=== PATIENT | female | born 1995 | race Caucasian/White ===

== ENCOUNTER 2022-09-10 22:04 | Emergency (ER) | payer BC ==
[~2022-09-10] VITALS: Ht 170.2 cm; Wt 177.8 kg
[~2022-09-10 22:04] MED LIST: PREN-385 PO
[2022-09-10 22:05] VITALS: BP 135/99
--- NOTE | 2022-09-10 22:08 | NUR ---
TO LOBBY A/W BED AMBULATORY
--- NOTE | 2022-09-10 23:38 | NUR ---
PT CALLED FOR BY RN WITH NO ANSWER
== END 2022-09-10 23:38 | disposition left against medical advice (07) ==
LOC: MED 22:04
DX: M79.661 Pain in right lower leg (principal); Z53.21 Procedure and treatment not carried out due to patient leaving prior to being seen by health care provider

== ENCOUNTER 2022-09-16 06:13 | Emergency (ER) | payer BC ==
[~2022-09-16] VITALS: Ht 170.2 cm; Wt 176.9 kg
[2022-09-16 06:15] VITALS: BP 119/58
--- NOTE | 2022-09-16 06:18 | NUR ---
TO LOBBY A/W BED AMBULATORY
--- NOTE | 2022-09-16 07:35 | NUR ---
PT TAKEN TO XRAY VIA WC
--- NOTE | 2022-09-16 07:42 | NUR ---
DR CHINCHILLA EVALUATING PT
--- NOTE | 2022-09-16 07:54 | NUR ---
PT AMBULATED TO BED 3 WITH STEADY GAIT
[2022-09-16 08:11] LABS: BASOPHILS % (AUTO) 0.4 % (0.0-2.0); EOSINOPHILS # (AUTO) 0.1 K/uL (0-0.4); HEMATOCRIT 38.9 % (36-48); HEMOGLOBIN 12.3 g/dL (12.0-16.0); LYMPHOCYTES % (AUTO) 15.1 % (20.5-51.1); MEAN CORPUSCULAR HEMOGLOBIN 24 pg (27-31); MEAN CORPUSCULAR HGB CONC 32 g/dL (33-37); MEAN CORPUSCULAR VOLUME 75.8 fL (80-94); MONOCYTES # (AUTO) 0.5 K/uL (0.8-1.0); MONOCYTES % (AUTO) 7.2 % (1.7-9.3); NEUTROPHILS # (AUTO) 4.9 K/uL (1.8-7.7); NEUTROPHILS % (AUTO) 75.3 % (42.2-75.2); PLATELET COUNT (AUTO) 266 K/uL (140-450); RED BLOOD CELL COUNT(AUTO) 5.13 MIL/uL (4.20-5.40); RED CELL DISTRIBUTION WIDTH 15.3 % (11.6-13.7); WHITE BLOOD COUNT (AUTO) 6.5 K/uL (4.8-10.8)
--- NOTE | 2022-09-16 08:23 | NUR ---
pt encouraged to give urine "I went before coming". urine cup left at bedside
[2022-09-16 08:33] LABS: ALBUMIN 3.4 g/dL (3.4-5.0); ANION GAP 12.6 (8-16); CARBON DIOXIDE 24.3 mmol/L (21-32); CREATININE 0.6 mg/dL (0.6-1.3); POTASSIUM 3.9 mmol/L (3.5-5.1); TOTAL BILIRUBIN 0.5 mg/dL (0.0-1.0)
--- NOTE | 2022-09-16 08:40 | NUR ---
26YO FEMALE PT C/O PRESSURED CHEST PAIN XYESTERDAY. REPORTS SUDDEN CONSTANT ONSET W/ UNPROVOKED INTERMITTENT 1HR SHARP EPISODES. STATES PREVIOUS S/S WHEN SHE WAS 17 AND WAS DX- "BLOOD CLOTS" THAT WENT UNTREATED OR FOLLOWED UP . +NUMBING IN R LEG .DENIES V/D, SOB, RADIATION OR TAKING MEDICATION. PT AAOX4, RESPIRATIONS EVEN AND UNLABORED. ON [employer]IST HX:DENIES NKA
[2022-09-16 09:46] LABS: APPEARANCE,URINE CLEAR (CLEAR); BILIRUBIN,URINE NEGATIVE (NEGATIVE); BLOOD, URINE TRACE-I (NEGATIVE); COLOR,URINE YELLOW (YELLOW); LEUKOCYTE ESTERASE ,URINE TRACE (NEGATIVE); NITRITE, URINE NEGATIVE (NEGATIVE); UGLUCOSE NEGATIVE (NEGATIVE)
[2022-09-16 10:11] LABS: RBC,URINE 0-5 /HPF (0-5); WBC,URINE 0-5 /HPF (0-5)
[2022-09-16] MEDS ORDERED: IBUP-2213 PO (14:05)
--- NOTE | 2022-09-16 14:20 | NUR ---
IV removed, catheter intact and site benign. Applied folded 4x4 gauze and tape to stop bleeding.
[2022-09-16 14:21] VITALS: BP 126/72
--- NOTE | 2022-09-16 14:21 | NUR ---
Patient discharged with v/s stable. Written and verbal after care instructions FOR NON SPECIFIC CHEST PAIN given and explained. Patient alert, oriented and verbalized understanding of instructions. Ambulatory with steady gait. All questions addressed prior to discharge. ID band removed. Patient advised to follow up with PMD. Rx of IBUPROFEN given. Opportunity to ask questions provided and answered.
--- NOTE | 2022-09-16 14:22 | NUR ---
The patient's care was reviewed and supervised by Isabel Humphrey RN.
== END 2022-09-16 14:21 | disposition home or self-care (01) ==
LOC: MED 06:13
DX: R07.89 Other chest pain (principal); E66.01 Morbid (severe) obesity due to excess calories; M79.661 Pain in right lower leg; Z68.1 Body mass index [BMI] 19.9 or less, adult
CPT/HCPCS: 36415; 71045; 71275; 80053; 81001; 81025; 85025; 85379; 93971; 99285; Q0092; Q9967

== ENCOUNTER 2022-11-15 12:20 | Emergency (ER) | payer BC ==
[~2022-11-15] VITALS: Ht 170.2 cm; Wt 193.7 kg
[~2022-11-15 12:20] MED LIST changes: +IBUP-2213 PO
[2022-11-15 12:39] VITALS: BP 129/79
[2022-11-15 14:11] LABS: APPEARANCE,URINE CLEAR (CLEAR); BILIRUBIN,URINE NEGATIVE (NEGATIVE); BLOOD, URINE NEGATIVE (NEGATIVE); COLOR,URINE YELLOW (YELLOW); LEUKOCYTE ESTERASE ,URINE TRACE (NEGATIVE); NITRITE, URINE NEGATIVE (NEGATIVE); UGLUCOSE NEGATIVE (NEGATIVE)
--- NOTE | 2022-11-15 14:50 | NUR ---
Patient discharged with v/s stable. Written and verbal after care instructions ABOUT LOW BACK SPRAIN given and explained. Patient alert, oriented and verbalized understanding of instructions. Ambulatory with steady gait. All questions addressed prior to discharge. ID band removed. Patient advised to follow up with PMD. Rx of SALON PAS, MOTRIN given. Patient educated on indication of medication including possible reaction and side effects. Opportunity to ask questions provided and answered.
[2022-11-15] MEDS ORDERED: IBUP-1842 PO (14:53)
[2022-11-15] MEDS ORDERED: CAPS1ADH5 TP (14:53)
[2022-11-15] MEDS ORDERED: NAPR-1704 PO (14:58)
== END 2022-11-15 14:50 | disposition home or self-care (01) ==
LOC: MED 12:20
DX: M54.50 Low back pain, unspecified (principal); Z79.899 Other long term (current) drug therapy
CPT/HCPCS: 72100; 81003; 81025; 99284

== ENCOUNTER 2024-01-27 00:57 | Emergency (ER) | payer BC ==
[~2024-01-27] VITALS: Ht 170.2 cm; Wt 210.9 kg
[~2024-01-27 00:57] MED LIST changes: +CAPS1ADH5 TP; +NAPR-1704 PO
[2024-01-27 01:15] VITALS: BP 139/76; PULSE 98; RESP 16; TEMP 97.7; O2SAT 99
== END 2024-01-27 02:43 | disposition home or self-care (01) ==
LOC: MED 00:57
DX: R10.12 Left upper quadrant pain (principal); M25.552 Pain in left hip; Z79.1 Long term (current) use of non-steroidal anti-inflammatories (NSAID); Z79.899 Other long term (current) drug therapy
CPT/HCPCS: 99281

== ENCOUNTER 2024-04-27 16:29 | Emergency (ER) | payer BC ==
[~2024-04-27] VITALS: Ht 170.2 cm; Wt 195.0 kg
[2024-04-27 16:48] VITALS: BP 130/81; PULSE 98; RESP 22; TEMP 97.5; O2SAT 98
[2024-04-27] MEDS ORDERED: IBUP-2213 PO (18:05)
== END 2024-04-27 18:24 | disposition home or self-care (01) ==
LOC: MED 16:29
DX: G89.29 Other chronic pain (principal); M25.571 Pain in right ankle and joints of right foot; M25.471 Effusion, right ankle; Z79.899 Other long term (current) drug therapy
CPT/HCPCS: 99282